=== PATIENT | male | born 1990 | race Caucasian/White ===

== ENCOUNTER 2017-06-12 19:23 | Inpatient (IN) | payer OTHER ==
[~2017-06-12] VITALS: Ht 175.3 cm; Wt 57.0 kg
--- NOTE | 2017-06-12 20:04 | NUR ---
LAB AT BEDSIDE
--- NOTE | 2017-06-12 20:15 | NUR ---
PT BIBA FOR CO GEN WEAKNESS X4 DAYS, PER MEDIC PT WAS SEEN AT [facility] AND DC 2 DAYS AGO AFTER ADMITTED FOR SEIZURE. PER MEDIC PT ALSO WAS HOSPITALIZED FOR CARDIAC ARREST IN NOV 2016. PT HAS DIALYSIS MWF; SHUNT TO UPPER RIGHT CHEST. PT AWAKE ALERT, STS PAIN AT 8/10. PT HAS HX OF COCAINE USE, PER PT HAS NOT USED IN 2 DAYS. COOLING MEASURES INITIATED, MEDS GIVEN FOR FEVER. PT CONNECTED TO FULL CM
--- NOTE | 2017-06-12 20:46 | NUR ---
GRANDMOTHER AND MOTHER AT BEDSIDE. MRSA SWAB OBTAINED
[2017-06-12 21:06] LABS: PLATELET COUNT 76 x10^3mcL (130-400); RED CELL DISTRIBUTION WIDTH 15.2 % (11.5-14.5)
[2017-06-12 21:10] LABS: BAND NEUTROPHIL 14 % (0-10); METAMYELOCTE 4 % (0-2); MONOCYTE 5 % (0-7); SEGMENTED NEUTROPHILS 72 % (37-75)
[2017-06-12 21:12] LABS: rbc morphology (normal/abnorm) ABNORMAL (NORMAL)
--- NOTE | 2017-06-12 21:18 | NUR ---
PT OUTPUT 200 ML CLEAR YELLOW URINE VIA URINAL.
[2017-06-12 21:37] LABS: ALBUMIN 3.3 g/dL (3.4-5.0); BILIRUBIN TOTAL 0.4 mg/dL (0.20-1.00); CALCIUM 7.2 mg/dL (8.5-10.1); CARBON DIOXIDE 26.4 mmol/L (21-32); POTASSIUM SERUM 4.7 mmol/L (3.5-5.1); TOTAL PROTEIN, SERUM 6.9 g/dL (6.4-8.2)
[2017-06-12 21:39] LABS: CREATININE SERUM 9.5 mg/dL (0.7-1.3)
[2017-06-12 21:48] LABS: CK-MB < 0.5 ng/mL (0-3.6)
[2017-06-12 22:03] LABS: CREATINE KINASE 21508 U/L (39-308)
[2017-06-12 22:10] LABS: UA SPECIFIC GRAVITY 1.015 (1.005-1.035)
[2017-06-12 22:11] LABS: microscopic required? YES; urine erythrocyte 3+ (NEGATIVE)
[2017-06-12] MEDS ORDERED: NEPHRO-VITE VITA1 EA PO (22:36)
[2017-06-12] MEDS ORDERED: CALCITRIOL0.25 MCG PO (22:37)
[2017-06-12] MEDS ORDERED: VITAMIN D32000 I2 PO (22:37)
[2017-06-12] MEDS ORDERED: NOR10 PO (22:38)
[2017-06-12] MEDS ORDERED: LEXAPRO20 MG PO (22:38)
[2017-06-12] MEDS ORDERED: ASPIRIN325 M1 PO (22:38)
[2017-06-12] MEDS ORDERED: PHOSLO667 MG PO (22:38)
[2017-06-12] MEDS ORDERED: TRILEPTAL150 MG PO (22:38)
[2017-06-12] MEDS ORDERED: METOPROLOL TART50 MG PO (22:39)
[2017-06-12] MEDS ORDERED: LISINOPRIL40 MG PO (22:39)
[2017-06-12] MEDS ORDERED: MINOXIDIL2.5 MG PO (22:39)
[2017-06-12] MEDS ORDERED: HYDRALAZINE HCL25 MG PO (22:39)
[2017-06-12] MEDS ORDERED: LIPI10 PO (22:40)
[2017-06-12] MEDS ORDERED: ABILIFY5 M1 PO (22:40)
--- NOTE | 2017-06-12 22:48 | NUR ---
REPORT GIVEN TO AZRA TO ASSUME CARE OF PT. PT STS NEEDING TO USE RESTROOM; BEDSIDE COMMODE GIVEN. PT AWAKE ALERT, RESP E/U AT THIS TIME
[2017-06-12 22:57] LABS: MAGNESIUM 1.7 mg/dL (1.8-2.4); PHOSPHOROUS 5.2 mg/dL (2.5-4.9)
[2017-06-12 23:04] LABS: T3 TOTAL 0.51 ng/mL
[2017-06-12 23:05] LABS: FREE T4 0.74 ng/dL (0.76-1.46); FREE THYROXINE INDEX 1.6 ug/dL (1.4-4.5); T4(THYROXINE) 4.7 ug/dL (4.7-13.3)
[2017-06-12 23:49] VITALS: BP 128/84
--- NOTE | 2017-06-13 00:02 | NUR ---
RECEIVED PATIENT FROM ED VIA GUERNEY, PATIENT ALERT AND ORIENTED MOTHER AT BEDSIDE, TELE # 9 ST, IV ACCESS TO LFA MAICOL WARREN CATH NOTED TO R UPPER CHEST, PATIENT ON HD , NO C/O PAIN AT THIS TIME, ORIENTED PATIENT TO ROOM AND SURROUNDINGS, BED IN LOW POSITION, BED RAILS UP X 2, CALL LIGHT WITHIN REACH, WILL ENDORSE CARE TO PRIMARY NURSE AZRA MADRIGAL
--- NOTE | 2017-06-13 00:25 | NUR ---
PT SIGNED CONSENT FOR DISCLOSURE OF HEALTH INFORMATION. PT'S MOTHER PRESENT AND SHE NOTICED THAT PT HAD DIFFICULTY WRITING AND SAID THAT NORMALLY HE CAN WRITE WITHOUT DIFFICULTY. ASSESSED PT'S HAND MANAGER ONCOLOGY AND NOTED STRONG BILATERALLY.
--- NOTE | 2017-06-13 01:09 | NUR ---
INFORMED DR. BURGESS THAT PT'S MOTHER IS CONCERNED THAT SHE NOTICED HER SON HAVING DIFFICULTY WRITING AND THAT PER MOTHER NORMALLY THE PT CAN WRITE WITHOUT DIFFICULTY. ALSO INFORMED DR. BURGESS REGARDING MG LEVEL OF 1.7 .
--- NOTE | 2017-06-13 02:55 | NUR ---
PT HAD MOD WATERY BM. PT CLEANED AND KEPT COMFORTABLE.
--- NOTE | 2017-06-13 05:09 | NUR ---
PT RESTING IN BED. HE HAD WATERY BM X2 SINCE ARRIVAL TO FLOOR. STOOL SPECIMEN FOR C-DIFF SENT TO LAB ORDERED. PT HAD NO C/O PAIN. HE REMAINS ORIENTED X4. TYLENOL GIVEN FOR TEMP OF 103.7 . WILL RECHECK TEMP. PT INSTRUCTED TO BE ON NPO STATUS UNTIL U/S ABDOMEN IS DONE. IV TO LTFA INTACT W/ NS AT 50 CC/HR. NO EPISODE OF SEIZURE.
[2017-06-13 06:09] VITALS: BP 132/82
--- NOTE | 2017-06-13 06:31 | NUR ---
TEMP [id number].
[2017-06-13 06:32] LABS: BASOPHIL % 0.1 % (0-2)
[2017-06-13 06:57] LABS: CALCIUM 7.3 mg/dL (8.5-10.1); CARBON DIOXIDE 25.7 mmol/L (21-32); MAGNESIUM 1.6 mg/dL (1.8-2.4); POTASSIUM SERUM 4.4 mmol/L (3.5-5.1)
--- NOTE | 2017-06-13 07:30 | NUR ---
PT SLEEPING. HARD OF HEARING. WITH LOUD VOICE PT AWAKENS. ALERT TO PERSON AND . HX SEIZURES. SEIZURE PRECAUTIONS IN PLACE. HUFO=079.2. TELE #9 SINUS RHYTHM RATE 88. RESP 18 EVEN. BREATH SOUNDS CLEAR. NO COUGH OR SOB. PULSE OX 95% RA. ABD SOFT, BOWEL TONES PRESENT. HAS PERIODS OF LOOSE INCONTINENT STOOLS STRONG ODOR. PAD IN PLACE. DENIES ABD DISCOMFORT OR NAUSEA. APPETITE FAIR. NO PEDAL EDEMA. PULSES PRESENT. SCD IN PLACE. IV PATENT LFA INFUSING NORMAL SALINE 50CC/HR. MAICOL CATH RIGHT UPPER CHEST. LAST DIALYSIS TX Sunday06-11-17. SIDE RAILS UP X2. CALL LIGHT IN REACH. NPO FOR ABD ULTRASOUND THIS AM. FALL PRECAUTIONS IN PLACE.
[2017-06-13 07:34] LABS: PLATELET COUNT 104 x10^3mcL (130-400); RED CELL DISTRIBUTION WIDTH 14.7 % (11.5-14.5)
[2017-06-13 08:18] VITALS: BP 113/71
--- NOTE | 2017-06-13 08:30 | NUR ---
DR BARRETT AND MEDICAL TEAM IN ON ROUNDS. CHARGE AND PRIMARY NURSE PRESENT. REVIEWED PLAN OF CARE. PT VERBALIZED UNDERSTANDING.
--- NOTE | 2017-06-13 09:40 | NUR ---
DR MORENO HERE. UPDATED WITH PT STATUS AND DIALYSIS TX SCHEDULE. REPORTS "DR HOBBS HAS BEEN NOTIFIED."
--- NOTE | 2017-06-13 11:00 | NUR ---
CALL FROM LAB. BLOOD CULTURE SHOWS GRAM POSITIVE COCCI IN CLUSTERS. PAGE TO DR MORENO AND MADE AWARE. ON ROCEPHIN IV DAILY. DR FU TO CONSULT.
--- NOTE | 2017-06-13 11:30 | NUR ---
DR ALBERTO AND DR SCHWARTZ IN TO SEE PT. UPDATED WITH LABS.
[2017-06-13 12:58] VITALS: BP 111/79
--- NOTE | 2017-06-13 14:05 | NUR ---
RECEIVED PT BACK VIA BED FROM XRAY AFTER COMPLETION OF LUMBAR PUNCTURE. PER REPORT ONLY 5CC OBTAINED. INSTRUCTED WITH NEED TO REMAIN FLAT IN BED. HOB ELEVATED 10 DEGREES. VERBALIZED UNDERSTANDING. TELE MONITOR APPLIED. LUNCH SERVED. PT STATES "ONLY URINATES A LITTLE BIT EVERY FEW DAYS." URINE SAMPLE FROM 8-29 IN LAB. ORDER SUBMITTED FOR UDS AND URINE CULTURE. IVF PER DR ORDER INCREASED TO BOLUS 200CC FOR ONE LITER. REVIEWED PLAN OF CARE WITH PT. CALL LIGHT IN REACH.
--- NOTE | 2017-06-13 15:52 | NUR ---
Initial Nutrition Assessment Dx: Rhabdomyolysis and fever PMHx: Alport syndrome with anterior lenticonus bilaterally, hearing impairment and ESRD on HD, Substance abuse - methamphetamines and cocaine, [place] in November 2016, Seizures, HTN HLD PSHx:previous peritoneal dialysis Labs: (06/13) Na:134L, BUN:58H, Cr:11H, Ca:7.3L, Bassam:6H, H/H:9.8/30L Meds: Colace, Lactinex, Magnesium oxide, Nephro-hernandez, Phoslo, Rocaltrol, Vit D, Zofran. Diet:Regular PO Intake:No PO intake recorded Ht: 69in, 5'9 Wt: 130#, 60.46kg BMI: 19.7kg/m2 (normal weight) IBW: 160#,73kg %IBW: 81% UBW:130# per pt Age:27 y/o male Food Allergies:NKFA Skin:intact Hector:20 Edema:none GI:active bowel sounds. Last BM:06/12 (loose stool) Nursing Trgigger: N/V/D>3days Pt admitted with possible sepsis secondary to UTI vs infected carlton catheter vs gastroenteritis, per H&P. Per progress note 06/13, pt's blood cultures came back positive for gram positive coccii in clusters (pt on Rocephin). Dr. Harmon was consulted and has been notified of the update of the pt's condition. During visit, pt reports no GI issues with a fair to good appetite. Pt seemed to not be interested during RD interview and answered questions with, "Yes or No". Problem with: N: No V: No D: No C:No Problems with: Chewing:No Swallowing: No Current appetite: Fair to Good per pt Recent wt change:No %wt change:0% Vitamin/Supplement use:No Special diet at home:No Physical activity:No Education: Pt declined nutrition education. Estimated Nutritional Needs Based on actual body weight 60kg Energy: 2100kcal/d (35kcal/kg for ESRD on HD) Protein: 72-78g/d (1.2-1.3g/kg for ESRD on HD) Fluid: 500-1000ml/day +urine output or per doctor Nutrition Diagnosis 1. Altered nutrition labs related to ESRD on HD as evidenced by BUN:58, Cr:11, Phos:6. Intervention 1.Recommend change diet from Regular to Renal diet. Monitor/Evaluate Goal: PO intake at least 75% of estimated needs Monitor: PO intake, Labs, GI function F/U in 3-5 days as moderate risk:9/2-4
--- NOTE | 2017-06-13 15:53 | NUR ---
Recommend change diet from Regular to Renal diet. Pt with ESRD on HD.
--- NOTE | 2017-06-13 16:00 | NUR ---
DR MARROQUIN HERE. UPDATED WITH PT STATUS. IV CONVERTED TO SALINE LOCK. IV LASIX DC. FOR DIALYSIS TODAY. CALL TO JEFRY MADRIGALMAINTENANCE GROUNDSKEEPER NURSE. WILL BE HERE THIS AFTERNOON. SPOKE WITH PHARMACY, THEY WILL SCHEDULE IV VANCO FOR AFTER DIALYSIS.
[2017-06-13 16:33] LABS: APPEARANCE CSF CLEAR; COLOR CSF COLORLESS; SOURCE FLUID CSF
[2017-06-13 16:34] LABS: RBC CSF 307 /cumm (0); VOLUME CSF 4.5 mL; WBC CSF 7 /cumm (0-5)
[2017-06-13 16:35] LABS: CALCIUM 7.8 mg/dL (8.5-10.1); CARBON DIOXIDE 26.8 mmol/L (21-32); POTASSIUM SERUM 4.7 mmol/L (3.5-5.1)
[2017-06-13 16:38] LABS: CREATININE SERUM 11.7 mg/dL (0.7-1.3)
--- NOTE | 2017-06-13 16:50 | NUR ---
DIALYSIS NURSE JEFRY HERE. CONSENT SIGNED FOR DIALYSIS. NO CHANGE IN PT STATUS. CALL LIGHT IN REACH.
[2017-06-13 17:35] VITALS: BP 113/71
--- NOTE | 2017-06-13 19:00 | NUR ---
PT CONTINUES ON DIALYSIS TX. REPORT WITH MADAY MADRIGAL GLASS OR MIRROR INSPECTOR AT BEDSIDE. NO CHANGE IN ORDERS. CALL LIGHT IN REACH.
--- NOTE | 2017-06-13 19:30 | NUR ---
PT CURRENTLY HAVING DIALYSIS. ALERT AND VERBAL WITH CLEAR SPEECH. ON ROOM AIR WITH NO S/S OF RESPIRATORY DISTRESS NOTED. ON TELE 9, NSR. DENIES ANY CHEST PAIN. MAICOL CATH SITE CDI. NO S/S OF INFECTION NOTED. ABD SOFT AND FLAT. BOWEL SOUNDS ACTIVE. IV SALINE LOCK TO LEFT FA PATENT AND INTACT. NO S/S OF INFECTION NOTED. NO EDEMA NOTED. PULSES PALPABLE. DENIES ANY PAIN AT THIS TIME. NO MOANING OR GRIMACING NOTED. NO S/S OF DISTRESS NOTED. CALL LIGHT WITHIN REACH. WILL CONTINUE TO MONITOR.
--- NOTE | 2017-06-13 20:10 | NUR ---
DIALYSIS COMPLETED. PT'S VSS. 1500 OUT. NO S/S OF DISTRESS OR DISCOMFORT NOTED AT THIS TIME. CALL LIGHT WITHIN REACH. WILL CONTINUE TO MONITOR.
[2017-06-13 21:12] VITALS: BP 116/81
--- NOTE | 2017-06-14 00:30 | NUR ---
PT RESTING IN BED WITH EYES CLOSED. BREATHING EQUAL AND UNLABORED. NO S/S OF RESPIRATORY DISTRESS NOTED. NO ADVERSE REACTIONS NOTED FROM IV VANCOMYCIN. IV PATENT AND INTACT. RESTING COMFORTABLY WITH RELAXED FACIAL FEATURES. CALL LIGHT WITHIN REACH. WILL CONTINUE TO MONITOR.
--- NOTE | 2017-06-14 02:25 | NUR ---
PT C/O HAVING TROUBLE SLEEPING. DR. FREY NOTIFIED AND AWARE. AWAITING NEW ORDER.
[2017-06-14 05:55] VITALS: BP 127/85
--- NOTE | 2017-06-14 06:17 | NUR ---
PT SLEPT WELL REST OF THE NIGHT. CURRENTLY RESTING IN BED WITH EYES CLOSED. BREATHING EQUAL AND UNLABORED. NO S/S OF RESPIRATORY DISTRESS NOTED. RESTING COMFORTABLY WITH RELAXED FACIAL FEATURES. NO S/S OF DISTRESS NOTED. CALL LIGHT WITHIN REACH. WILL CONTINUE TO MONITOR.
[2017-06-14 06:30] LABS: CALCIUM 8.1 mg/dL (8.5-10.1); CARBON DIOXIDE 30.4 mmol/L (21-32); MAGNESIUM 1.7 mg/dL (1.8-2.4); PHOSPHOROUS 4.8 mg/dL (2.5-4.9); POTASSIUM SERUM 3.9 mmol/L (3.5-5.1)
[2017-06-14 06:49] LABS: BASOPHIL % 0.4 % (0-2)
[2017-06-14 06:58] LABS: CREATININE SERUM 7.4 mg/dL (0.7-1.3)
[2017-06-14 07:04] LABS: PLATELET COUNT 105 x10^3mcL (130-400); RED CELL DISTRIBUTION WIDTH 15.2 % (11.5-14.5)
--- NOTE | 2017-06-14 07:23 | NUR ---
PT RECEIVED DURING CHANGE OF SHIFT, ASLEEP BUT AROUSABLE, [place], SZ PRECAUTIONS IN PLACE, TELE 9, NSR, PULSES PRESENT, NO EDEMA NOTED, LUNGS CTA ON RA, BREATHING EVEN AND UNLABORED, BOWEL SOUNDS ACTIVE, LBM 06/13/17, PT VOIDS SMALL AMOUNTS, RECEIVES HD TX MWF, LAST HD TX 06/13/17 1500ML OUT, MAICOL CATH TO RIGHT CHEST, GENERALIZED WEAKNESS, NO INDICATION OF PAIN, IV TO LFA SALINE LOCKED, CALL LIGHT WITHIN REACH, WILL CONTINUE TO MONITOR.
[2017-06-14 09:19] VITALS: BP 114/70
--- NOTE | 2017-06-14 09:20 | NUR ---
PT AROUSED FROM SLEEP, AGREED TO MEDICATIONS, DENIES PAIN, DENIES SOB, CALL LIGHT WITHIN REACH, WILL CONTINUE TO MONITOR.
--- NOTE | 2017-06-14 10:10 | NUR ---
PT SPEAKING WITH DR. MORENO.
--- NOTE | 2017-06-14 11:43 | NUR ---
PT AROUSED FROM SLEEP, DENIES SOB, DENIES PAIN, CALL LIGHT WITHIN REACH, WILL CONTINUE TO MONITOR.
--- NOTE | 2017-06-14 12:18 | NUR ---
PT ASLEEP, NO INDICATION OF PAIN, BREATHING EVEN AND UNLABORED, CALL LIGHT WITHIN REACH, WILL CONTINUE TO MONITOR.
--- NOTE | 2017-06-14 13:15 | NUR ---
PT DENIES SOB, DENIES PAIN, CALL LIGHT WITHIN REACH, WILL CONTINUE TO MONITOR.
--- NOTE | 2017-06-14 14:16 | NUR ---
PT DENIES SOB, DENIES PAIN, TELE PLACED BACK ON PT, CALL LIGHT WITHIN REACH, WILL CONTINUE TO MONITOR.
[2017-06-14 14:18] VITALS: BP 113/82
[2017-06-14 15:18] LABS: AMPHETAMINE QUAL UR NONE DETECTED (NEG <=1000)
--- NOTE | 2017-06-14 15:30 | NUR ---
PT DENIES SOB, DENIES PAIN, CALL LIGHT WITHIN REACH, WILL CONTINUE TO MONITOR.
--- NOTE | 2017-06-14 16:34 | NUR ---
PT DENIES SOB, DENIES PAIN, CALL LIGHT WITHIN REACH, WILL CONTINUE TO MONITOR.
--- NOTE | 2017-06-14 17:10 | NUR ---
PT DENIES SOB, DENIES PAIN, CALL LIGHT WITHIN REACH, DR. MORENO INFORMED PT OF NEED FOR CATHETER REMOVAL TOMORROW.
[2017-06-14 17:28] VITALS: BP 103/69
--- NOTE | 2017-06-14 18:13 | NUR ---
PT ASLEEP, NO INDICATION OF PAIN, BREATHING EVEN AND UNLABORED, CALL LIGHT WITHIN REACH, WILL ENDORSE PT TO NEXT SHIFT.
[2017-06-14 19:30] VITALS: BP 100/59
--- NOTE | 2017-06-14 19:30 | NUR ---
PT RESTING IN BED WITH EYES CLOSED. AROUSED BY VERBAL AND TACTILE STIMULI. VERBAL WITH CLEAR SPEECH. NO S/S OF RESPIRATORY DISTRESS NOTED. LUNGS CLEAR BILATERALLY. MAICOL CATH TO LEFT UPPER CHEST CDI. DENIES ANY CHEST PAIN. ON TELE 9, NSR. ABD SOFT AND FLAT. BOWEL SOUNDS ACTIVE. LAST BM 06/14/17. SKIN WARM AND DRY. IV SALINE LOCK TO LEFT FA INTACT. NO S/S OF INFECTION NOTED. NO EDEMA NOTED. PULSES PALPABLE. DENIES ANY PAIN AT THIS TIME. NO S/S OF DISTRESS OR DISCOMFORT NOTED. SIDE RAILS UP. BED IN LOW POSITION. CALL LIGHT WITHIN REACH. WILL CONTINUE TO MONITOR.
[2017-06-14 21:34] VITALS: BP 120/81
--- NOTE | 2017-06-15 00:45 | NUR ---
PT RESTING IN BED WITH EYES CLOSED. BREATHING EQUAL AND UNLABORED. NO S/S OF RESPIRATORY DISTRESS NOTED. RESTING COMFORTABLY WITH RELAXED FACIAL FEATURES. CALL LIGHT WITHIN REACH. WILL CONTINUE TO MONITOR.
[2017-06-15 05:44] VITALS: BP 115/77
--- NOTE | 2017-06-15 05:57 | NUR ---
PT SLEPT WELL THROUGH THE NIGHT. EASILY AROUSED WHEN NAME CALLED. NO S/S OF RESPIRATORY DISTRESS NOTED. PT HAD BM X1, DIARRHEA. DENIES ANY PAIN OR DISCOMFORT AT THIS TIME. NO S/S OF DISTRESS NOTED. CALL LIGHT WITHIN REACH. WILL CONTINUE TO MONITOR.
[2017-06-15 06:39] LABS: BASOPHIL % 0.4 % (0-2); PLATELET COUNT 143 x10^3mcL (130-400)
[2017-06-15 06:53] LABS: RED CELL DISTRIBUTION WIDTH 15.3 % (11.5-14.5)
--- NOTE | 2017-06-15 08:11 | NUR ---
SLEEPING BUT EASILY AROUSABLE, ORIENTED, [place], SEIZURE PRECAUTIONS IN PLACE. TELE #9. PULSES PRESENT AND EQUAL, NO EDEMA NOTED. LUNG SOUNDS CLEAR ON RA. LAST BM 06/15/17, REPORTS LOOSE STOOLS. PACO CATH TO RIGHT CHEST, DIALYSIS IN ROOM. SKIN WARM DRY AND INTACT. DENIES ANY PAIN AT THIS TIME, NO SOB OR DISTRESS NOTED. IV LFA, WNL, SL.
[2017-06-15 08:29] LABS: CALCIUM 8.3 mg/dL (8.5-10.1); CARBON DIOXIDE 27.6 mmol/L (21-32); PHOSPHOROUS 6.9 mg/dL (2.5-4.9); POTASSIUM SERUM 3.9 mmol/L (3.5-5.1)
--- NOTE | 2017-06-15 08:52 | NUR ---
DR BARRETT AND MEDICAL TEAM IN ROUNDS MADE ON PATIENT, CHARGE AND PRIMARY NURSE PRESENT. PLAN FOR THE DAY IS DIALYSIS AND REMOVAL OF PACO CATH.
[2017-06-15 09:45] VITALS: BP 92/62
[2017-06-15 09:55] VITALS: BP 125/73
--- NOTE | 2017-06-15 11:45 | NUR ---
STOCK TRANSFER CLERK CALL, PATIENT IN BIGEMENY PVC'S. NO DISTRESS NOTED ON PATIENT
--- NOTE | 2017-06-15 12:05 | NUR ---
DIALYSIS COMPLETED, RECEIVED REPORT FROM DIALYSIS NURSE, LOST 1.9 KG, BP 106/76, HR 78 AND DRESSING CHANGED, TOLERATED WELL
--- NOTE | 2017-06-15 12:13 | NUR ---
WITNESS CONSENT FOR REMOVAL OF PERMACATH.DOCTOR CURIEL REMOVED CATHETER, TOLERATED WELL. NO DISTRESS NOTED
--- NOTE | 2017-06-15 12:20 | NUR ---
DR CURIEL HAS LEFT, DID NOT CULTURE TIP OF PERMACATH. DR ROBLERO AND LAB NOTIFIED. DRESSING CDI RIGHT UPPER CHEST.
--- NOTE | 2017-06-15 12:45 | NUR ---
PT ANXIOUS TO GO HOME. STATES "ALL I NEED IS A CIGARETTE. I WANT TO LEAVE." DR ROBLERO IN TO SPEAK WITH PT. INFORMED OF RISKS AND POSSIBLE SEPSIS, AND IF INFECTION WERE TO SPREAD. PT VERBALIZED UNDERSTANDING AND STILL WANTS TO LEAVE. IV REMOVED CATH TIP INTACT. TELE REMOVED.
--- NOTE | 2017-06-15 12:50 | NUR ---
DR SEPULVEDA IN TO SPEAK WITH PT. PT AGREEABLE NOW TO STAY. NOT LEAVING AMA. TELE APPLIED. IV TO BE RESTARTED.
[2017-06-15 13:11] VITALS: BP 119/84
--- NOTE | 2017-06-15 14:56 | NUR ---
IV STARTED IN LEFT HAND TOLERATED WELL. IV IN LFA D/C EARLIER CATHETER INTACT
--- NOTE | 2017-06-15 17:06 | NUR ---
NICODERM PATCH PLACED TO RIGHT UPPER ARM. VISITOR IN ROOM. NO DISTRESS OR SOB NOTED
[2017-06-15 17:45] VITALS: BP 125/88
--- NOTE | 2017-06-15 17:45 | NUR ---
CALLED [facility] TO ORDER DOSE OF VANCOMYCIN FOR PATIENT, WILL SEND DOSE.
--- NOTE | 2017-06-15 19:24 | NUR ---
PATIENT RESTING, NO DISTRESS NOTED, VANCO INFUSING, DENIES ANY PAIN AT THIS TIME. EDORSED TO NIGHT NURSE
--- NOTE | 2017-06-15 19:45 | NUR ---
RECD PT LAYING IN BED, PT IS AAO X4 AND ON SEIZURE PRECAUTIONS. PT IS [place] IN BOTH EARS. PT ON TELE #9, NSR. PEDAL PULSES PRESENT, NO SIGNS OF EDEMA NOTED. PT ON ROOM AIR, LUNG SOUNDS CLEAR ON AUSCULTATION. PT HAS GENERALIZED WEAKNESS. NO C/O PAIN AT THIS TIME. IV IN LH SALINE LOCKED. PT CALM. BED IN LOW POSITION, CALL LIGHT WITHIN REACH. WILL CONTINUE TO MONITOR.
[2017-06-15 21:11] VITALS: BP 142/95
--- NOTE | 2017-06-16 02:08 | NUR ---
PT SLEEPING ON LEFT SIDE COMFORTABLY. NO SIGNS OF DISTRESS NOTED. WILL CONTINUE TO MONITOR.
--- NOTE | 2017-06-16 03:26 | NUR ---
PT RESTING COMFORTABLY IN SUPINE POSITION. WILL CONTINUE TO MONITOR.
[2017-06-16 04:55] LABS: BASOPHIL % 0.3 % (0-2); PLATELET COUNT 169 x10^3mcL (130-400)
[2017-06-16 05:10] LABS: CALCIUM 8.2 mg/dL (8.5-10.1); CARBON DIOXIDE 27.1 mmol/L (21-32); MAGNESIUM 1.8 mg/dL (1.8-2.4); PHOSPHOROUS 6.4 mg/dL (2.5-4.9); POTASSIUM SERUM 4.2 mmol/L (3.5-5.1)
[2017-06-16 05:12] LABS: CREATININE SERUM 7.3 mg/dL (0.7-1.3)
[2017-06-16 05:16] LABS: RED CELL DISTRIBUTION WIDTH 15.2 % (11.5-14.5)
[2017-06-16 05:41] VITALS: BP 122/79
--- NOTE | 2017-06-16 06:33 | NUR ---
PT SLEEPING COMFORTABLY AT THE MOMENT. PT HAD NO C/O PAIN IN THE EVENING. PT REQUESTED SLEEP MED IN THE EVENING X1 AND WAS GIVEN AMBIEN 5 MG PO. BED IN LOW POSITION, CALL LIGHT WITHIN REACH.
--- NOTE | 2017-06-16 08:00 | NUR ---
AWAKE AND ALERT. TELE #9 SINUS RHYTHM WITH ELEVATED T WAVE. RESP 18 EVEN. BREATH SOUNDS CLEAR. LAST BM LOOSE 06-15-17. ESRD REPORTS "ONLY PEES A LITTLE BIT EVERY FEW DAYS." LAST DIALYSIS TX 06-15-17. DRESSING CDI TO RIGHT UPPER CHEST FROM PERMACATH REMOVED 06-15-17. NO EDEMA. PULSES PRESENT. SCD IN PLACE. SALINE LOCK LEFT HAND. SIDE RAILS UP X2. CALL LIGHT IN REACH.
--- NOTE | 2017-06-16 08:05 | NUR ---
DR ANGELA AND MEDICAL TEAM IN ON ROUNDS. REVIEWED PLAN OF CARE. TO HAVE NEW PERMACATH PLACED ON SUNDAY FOR DIALYSIS. TO CONTINUE IV ANTIBIOTICS ORDERED. PT VERBALIZED UNDERSTANDING.
[2017-06-16 10:02] VITALS: BP 108/76
--- NOTE | 2017-06-16 12:40 | NUR ---
APPETITE GOOD. DENIES PAIN. NO STOOL SO FAR TODAY. VOIDED SMALL AMOUNT IN BATHROOM. CALL LIGHT IN REACH.
[2017-06-16 12:49] VITALS: Ht 175.3 cm; Wt 57.0 kg
[2017-06-16 13:50] VITALS: BP 110/76
[2017-06-16 17:16] VITALS: BP 120/84
--- NOTE | 2017-06-16 17:40 | NUR ---
SLEPT OFF AND ON TODAY. PLEASANT. NICODERM PATCH IN PLACE. STATES "IT DOESN'T TAKE THE CRAVINGS AWAY BUT I AM OK." CALL LIGHT IN REACH.
--- NOTE | 2017-06-16 18:30 | NUR ---
TELE REMOVED AND RETURNED TO TELE UNIT.
--- NOTE | 2017-06-16 19:30 | NUR ---
PT ALERT/ORIENTED X4. NO C/O PAIN. PT ASSESSED; SEE NSG FLOWSHEET. SAFETY REINFORCED; SEE EDUCAT SHEET. WILL CONTINUE TO MONITOR. IV IN LF HAND INFILTRATED WILL START A NEW IV.
--- NOTE | 2017-06-16 20:15 | NUR ---
IV REMOVED; CANULA INTACT. NEW IV INITIATED IN THE LF FOREARM.
--- NOTE | 2017-06-16 20:55 | NUR ---
DR LANDIN IN ROOM SPEAKING TO PT.
[2017-06-16 21:32] VITALS: BP 131/83
--- NOTE | 2017-06-16 23:30 | NUR ---
PT AWAKE. NO C/O PAIN. WILL CONTINUE TO MONITOR.
--- NOTE | 2017-06-17 01:03 | NUR ---
PT REQUESTING SLEEP AID. MEDICATED WITH AMBIEN PER MD PRN ORDER. WILL CONTINUE TO MONITOR.
--- NOTE | 2017-06-17 02:03 | NUR ---
PT WITH EYES CLOSED. NO DISTRESS NOTED. PT WAS MEDICATED WITH AMBIEN AT 0103(SEE EMAR). WILL CONTINUE TO MONITOR.
--- NOTE | 2017-06-17 05:03 | NUR ---
PT SLEPT IN SHORT INTERVALS THROUGHOUT THE NIGHT. NO C/O PAIN. WILL CONTINUE TO MONITOR.
[2017-06-17 06:35] VITALS: BP 123/81
--- NOTE | 2017-06-17 07:10 | NUR ---
PT SEEN REST ON BED WITH SITTER AT BED SIDE. THIS TIME PT WOKE UP AND STATED SHE IS WORRIED ABOUT HER CAR, AND WONDER WHEN SHE CAN BE DISCHARGED. PT BREATHING ON RA, EVEN, UNLABORED. IV SITE PATENT, INTACT. IVF INFUSING WELL.
--- NOTE | 2017-06-17 07:15 | NUR ---
PT SEEN REST ON BED, AA/O X 4. PT NO COMPLAIN OF PAIN AT THIS TIME. PT BREATHING ON RA, EVEN, UNLABORED. IV SITE SALINE LOCK AT THIS TIME.
[2017-06-17 07:23] LABS: CALCIUM 8.3 mg/dL (8.5-10.1); CARBON DIOXIDE 25.3 mmol/L (21-32); PHOSPHOROUS 6.9 mg/dL (2.5-4.9); POTASSIUM SERUM 4.6 mmol/L (3.5-5.1)
[2017-06-17 07:40] LABS: CREATININE SERUM 9.2 mg/dL (0.7-1.3)
[2017-06-17 07:55] VITALS: BP 128/93
--- NOTE | 2017-06-17 14:03 | NUR ---
PT IS AWARE ABOUT INSERTION OF NONTUNNEL CATHERTER TOMORROW. CONSENT SIGNED. PT STATED NO MORE LOOSE STOOL SINCE YESTERDAY.
[2017-06-17 17:51] VITALS: BP 152/94
--- NOTE | 2017-06-17 18:37 | NUR ---
PT IS EATING DINNER. NO COMPLAIN OF PAIN AT THIS TIME. PT BREATHING ON RA, EVEN, UNLABORED. IV SITE SALINE LOCK. PT IS AWARE THAT POSSIBLE PROCEDURE- INSERTION OF NON-TUNNEL CATHETER. CONSENT SIGNED.
--- NOTE | 2017-06-17 19:15 | NUR ---
REPORT TAKEN FROM HORACE, ALL CARE ENDORSSED.
--- NOTE | 2017-06-17 19:30 | NUR ---
RECEIVED PT IN BED A/O X4. FOLLOWS COAND. RESP IS EVEN AND UNLABOTED. RA. SZ PRECAUTIONS. PT DENIES PAIN AT TIME. BOWEL SOUND ACTIVE X4Q. PT IS POSSIBLE TO HAVE TOMORROW PROCEDURE FOR INCERTING NON -TUNNELED CATH. PT IS HD AND VOIDS A SMALL AMOUNT. CONSENT IS SIGNED IN CHART AND CHECK LIST DONE WELL. SAFETY IN PLACE. CALL LIGHT WITHIN REACH. WILL CONTINUE TO MONITOR.
[2017-06-17 21:40] VITALS: BP 116/77
--- NOTE | 2017-06-18 | NUR ---
RECHECK WITH PT. PT IS SLEEPING AT TIME.
--- NOTE | 2017-06-18 00:15 | NUR ---
PT IS NPO AFTER MIDNIGHT
--- NOTE | 2017-06-18 04:00 | NUR ---
SPONGE BATH GIVEN. GOWN CHANGES. CARLOS 2% CHLORHEXIDINE GLUCONATE APPLIED FOR SKIN PREPERATION. NPO, CHECK LIST AND CONSENT IN CHART. WILL ENDORSE THE CARE TO DAY NURSE.
[2017-06-18 05:53] VITALS: BP 124/79
--- NOTE | 2017-06-18 07:21 | NUR ---
ASLEEP, RESP EVEN AND UNLABORED.
--- NOTE | 2017-06-18 08:25 | NUR ---
CONTINUES TO SLEEP, RESP EVEN AND UNLABORED, HAS CHANGED POSITIONS.
--- NOTE | 2017-06-18 08:48 | NUR ---
DR BARRETT IN TO SEE PATIENT. PLAN FOR MAICOL PLACEMENT TODAY. ALERT AND ORIENTED, HUGHES. RIGHT ARM RESTRICTION WILL BE HAVING AV SHUNT PLACED. ROOM AIR, NO SOB NOTED. MOVES ALL EXTREMITIES. SEIZURE PRECAUTIONS. HEPLOCKED TO LFA WNL. REPORTS LBM 06/17. CALL LIGHT WITHIN REACH. NPO.
--- NOTE | 2017-06-18 08:48 | NUR ---
USED NICOTENE PATCH ON BEDSIDE TABLE WAS PROPERLY DISPOSED. REFUSED NICOTENE PATCH AT THIS TIME.
[2017-06-18 08:54] VITALS: BP 128/85
--- NOTE | 2017-06-18 09:40 | NUR ---
ASLEEP, RESP EVEN AND UNLABORED.
--- NOTE | 2017-06-18 10:46 | NUR ---
ATIVAN GIVEN, HEPARIN GIVEN TO DR MEYERS.
--- NOTE | 2017-06-18 11:46 | NUR ---
WITNESSED CONSENT FOR MAICOL LINE PLACEMENT. TIME OUT COMPLETED WITH DR WELLS, DR MEYERS, [employer]. TECH AND THIS RN.
--- NOTE | 2017-06-18 12:21 | NUR ---
MAICOL CATH PLACED, CALLED RADIOLOGY FOR CXR.
--- NOTE | 2017-06-18 12:40 | NUR ---
RADIOLOGY IN TO DO CXR. IV DC'D CATHETER INTACT. REQUESTING TO EAT AND WANTS TO GO HOME AFTER HD TONIGHT. WILL SPEAK WITH
--- NOTE | 2017-06-18 12:46 | NUR ---
PAGED AND SPOKE WITH DR GALLARDO, MADE AWARE THAT WAITING RESULTS OF CXR AND PATIENT WANTS TO EAT AND BE RELEASED TONIGHT AFTER HD.
--- NOTE | 2017-06-18 13:25 | NUR ---
REQUESTING IV PAIN MEDICATION FOR NEW MAICOL SITE. DOES NOT WANT NORCO. PAGED AND SPOKE WITH DR GALLARDO.
--- NOTE | 2017-06-18 13:35 | NUR ---
IV STARTED IN LFA 20 GAUGE X 1 ATTEMPT BY OTHER RN.
--- NOTE | 2017-06-18 13:59 | NUR ---
HD NURSE CALLED IN AND WAS TOLD OKAY TO USE MAICOL.
--- NOTE | 2017-06-18 14:07 | NUR ---
Follow-up Nutrition Assessment Dx:Rhabdomyolysis, fever Labs: (06/17) B, BUN:75H, Cr:9.2H, Ca:9.3L, Phos:6.9H, H/H:10.2/31L Meds: Colace, Lactinex, Nephro-hernandez, Oscal, Phoslo, Rocaltrol, Vit D, Zofran. Diet: NPO for possible procedure. Previously on Renal diet. PO intake: (06/14) B:80%, L:NPO, D:100%, (06/15) B:NPO, L:NPO, D:100% (06/16) B:75% (06/17) B:100% Weights: (06/12) 133#, 60.46kg (06/16) 126#, 57kg Skin: intact Edema: None Last BM: 06/17 Pt admitted with Possible sepsis secondary to UTI vs infected carlton catheter vs gastroenteritis Per progress note 06/17, no acute events overnight. Pt to receive HD tomorrow as scheduled at 1800. Pt will have insertion of tunnel catheter today with Dr. Clark. During visit, pt had just come back from surgery for tunnel cath placement. Pt reports good appetite with no N/V/D/C. Pt wants to discharge after dialysis today. Estimated Nutritional Needs based on IBW:73kg Energy: 2190-2555kcal/day (30-35kcal/kg for ESRD on HD) Protein: 88-95g/day (1.2-1.3g/kg for ESRD on HD) Fluid: 500-1000ml/day +urine output or per doctor Nutrition Diagnosis 1. Altered nutrition labs related to ESRD on HD as evidenced by BUN:58, Cr: 11, Phos: 6 (ongoing) Intervention 1. Recommend advance diet as tolerated to Renal s/p surgery. Monitor/Evaluate Goal: diet advancement, PO intake at least 75% of estimated needs Monitor:NPO status, diet advancement, PO intake, Labs, GI function F/U in 7 day days as low risk: 06/25
--- NOTE | 2017-06-18 14:08 | NUR ---
UPSET ABOUT NOT GETTING IV PAIN MEDICATION, AGREED TO JAYLENE FOR 05/24, REQUESTED TO HAVE IV DC'D SINCE NOT GETTING IV PAIN MEDICATION. EXPLAINED RN WILL TALK WITH DR CONCERNING IV PAIN MEDICATION.
--- NOTE | 2017-06-18 14:09 | NUR ---
1. Recommend advance diet as tolerated to Renal s/p surgery.
--- NOTE | 2017-06-18 14:12 | NUR ---
HD NURSE BEDSIDE. PROVIDED WITH 2 BAGS NS, LABS AND HD ORDER.
--- NOTE | 2017-06-18 14:51 | NUR ---
HD NURSE REPORTING THAT PATIENT VERY UNCOOPERATIVE, KEEPS TRYING TO GET UP AND YELLING AT HER. THIS RN IN ROOM, PATIENT WANTING IV PAIN MEDICATION FOR 7/10 AT INSERTION SITE OF NEW MAICOL CATH. AUNT AND DAUGHTER OF PATIENT BEDSIDE.
--- NOTE | 2017-06-18 15:02 | NUR ---
PAGED DR ROBLERO X 2 TO MAKE AWARE OF PATIENTS BEHAVIOR AND DEMANDS.
--- NOTE | 2017-06-18 15:07 | NUR ---
SPOKE WITH DR ROBLERO, MADE AWARE OF PATIENTS BEHAVIOR AND REQUESTING IV PAIN MEDICATION.
--- NOTE | 2017-06-18 15:25 | NUR ---
MEDICATED WITH DILAUDID 1MG IV FOR 7/10 PAIN.
--- NOTE | 2017-06-18 16:12 | NUR ---
ASLEEP, RESP EVEN AND UNLABORED, HD CONTINUES.
--- NOTE | 2017-06-18 17:08 | NUR ---
ASLEEP, RESP EVEN AND UNLABORED. HD CONTINUES
[2017-06-18 17:21] VITALS: BP 127/88
--- NOTE | 2017-06-18 17:40 | NUR ---
HD COMPLETED. 2.6L OUT. WANTS TO SIGN OUT AMA. AGREES TO EAT DINNER WHILE DR MCKEON. PAGEYee ROBLERO.
--- NOTE | 2017-06-18 18:02 | NUR ---
THIS NURSE AND DR ROBLERO IN TO SPEAK WITH PATIENT AND MOTHER. DR ROBLERO SPOKE TO PATIENT ABOUT RISKS OF LEAVING AMA, INCLUDING INFECTION AND . PATIENT CURSING AND UPSET THAT MOTHER TRYING TO CONVINCE HIM TO STAY. CURSING AND UPSET TO FIND OUT MAICOL CATH WOULD NEED TO BE REMOVED PRIOR TO HIM LEAVING AMA. MOTHER STEPPED INTO HALLWAY WITH AND RN, ASKING FOR A HALF HOUR TO TRY TO CONVINCE PATIENT TO STAY, UNDERSTANDS NOT ABLE TO HOLD PATIENT AGAINST HIS WILL.
--- NOTE | 2017-06-18 18:20 | NUR ---
MOM REPORTS THAT PATIENT HAS AGREED TO STAY. SHE REPORTS THAT PATIENT IS FRUSTRATED BECAUSE NO ONE HAS EXPLAINED TO HIM WHY HE IS STILL HERE AND WHAT HE IS WAITING FOR, NO ONE HAS EXPLAINED TEST RESULTS TO HIM. HE WILL STAY IF THAT IS DONE AND HIS PAIN IS CONTROLLED. MOM REPORTS THAT [place], PATIENT HAS NEEDED THINGS EXPLAINED TO HIM IN A MORE "BASIC" MANNER. THIS RN SPOKE WITH DR ROBLERO AND MADE HER AWARE OF PATIENTS REQUESTS.
--- NOTE | 2017-06-18 19:50 | NUR ---
REC'D PT FROM DAY NURSE. AAOX3. LAYING IN BED. NO ACUTE DISTRESS NOTED. PULSES ARE PRESENT. NO TELE, MED-SURG PT. LUNG SOUNDS ARE CTA. BREATHING EVEN AND UNLABORED. SEZIURE PRECAUTION NOTED. L MAICOL CATH NOTED. NO EDEMA NOTED. MOTHER AT BEDSIDE. BED IN LOWEST POSITION. CALL LIGHT WITHIN REACH. WILL PROCEED TO PLAN OF CARE.
--- NOTE | 2017-06-18 20:05 | NUR ---
PT IS COMPLAINING OF PAIN 06/24. WILL MEDICATE PER EMAR.
[2017-06-18 21:23] VITALS: BP 117/81
--- NOTE | 2017-06-19 01:02 | NUR ---
PT IS CURRENTLY ASLEEP AND RESTING WELL. NO ACUTE DISTRESS NOTED. BREATHING EVEN AND UNLABORED. IV INTACT AND PATENT, HEP LOCK. WILL CONT TO MONITOR.
--- NOTE | 2017-06-19 03:59 | NUR ---
PT RESTING WITH EYES CLOSED. NO S/S OF RESP DISTRESS NOTED. BREATHING EVEN AND UNLABORED. WILL CONT TO MONITOR.
[2017-06-19 05:14] VITALS: BP 126/87
--- NOTE | 2017-06-19 05:49 | NUR ---
PT SLEPT THROUGHOUT THE SHIFT. NO ACUTE DISTRESS OR SIGNIFICANT CHANGES NOTED. CARLOS WIPED AROUND CENTRAL LINE. BREATHING EVEN AND UNLABORED. IV INTACT AND PATENT TO LFA, HEP LOCK. WILL ENDORSE ALL CONTINUITY CARE TO ONCOMING NURSE.
[2017-06-19 06:23] LABS: BASOPHIL % 0.4 % (0-2); PLATELET COUNT 260 x10^3mcL (130-400)
[2017-06-19 06:28] LABS: RED CELL DISTRIBUTION WIDTH 15.1 % (11.5-14.5)
--- NOTE | 2017-06-19 07:10 | NUR ---
PT SEEN AWAKE, A/O X3. PT NO COMPLAIN OF PAIN AT THIS TIME. PT HAD NEW MAICOL CATH INSERTED ON LEFT ON 06/18. PT BREATHING ON RA, EVEN, UNLABORED IV SITE PATENT, INTACT. SALINE LOCK AT THIS TIME.
[2017-06-19 07:16] LABS: CALCIUM 8.2 mg/dL (8.5-10.1); CARBON DIOXIDE 29.4 mmol/L (21-32); MAGNESIUM 1.9 mg/dL (1.8-2.4); PHOSPHOROUS 6.5 mg/dL (2.5-4.9); POTASSIUM SERUM 4.1 mmol/L (3.5-5.1)
[2017-06-19 07:22] LABS: CREATININE SERUM 8.3 mg/dL (0.7-1.3)
[2017-06-19 07:50] VITALS: BP 131/83
[2017-06-19 12:36] VITALS: BP 131/83
--- NOTE | 2017-06-19 14:11 | NUR ---
PT IS DISCHARGED WITH MAICOL CATH PER ORDER. DR. ROBLERO TALKED TO PT ABOUT HIS TOMORROW HD AND IV ANTIBIOTICS. PT STATED HE IS AWARE ABOUT TOMORROW HD SCHEDULE IN [facility]. PT ALSO STATED HIS MOM GOT CALL FROM DOCTOR AND AWARE ABOUT FOLLOW UP APPOINTMENT. DISCHARGE INSTRUCTION GIVEN. IV IS REMOVED. PT BREATHING ON RA, NO DISTRESSED NOTED. PT STATED HE IS GOING TO CALL [facility] WHEN HE GOT DOWNSTAIR. WALK PT DOWN TO DISCHARGE OFFICE. DISCHARGE NURSE RECEIVED PT.
== END 2017-06-19 14:10 | disposition home or self-care (01) | DRG 314 ==
LOC: ED 19:23 → DU 22:20 → MU 22:20 → DU 23:06 → MU 06-16 18:36
PROVIDERS: Emergency Medicine; Internal Medicine Nephrology; ADMIT Family Medicine
PROC: 02PYX3Z Removal of Infusion Device from Great Vessel, External Approach (ICD-10-PCS; principal; 2017-06-15)
PROC: 05HN33Z Insertion of Infusion Device into Left Internal Jugular Vein, Percutaneous Approach (ICD-10-PCS; 2017-06-18)
DX: T82.7XXA Infection and inflammatory reaction due to other cardiac and vascular devices, implants and grafts, initial encounter (principal); A41.9 Sepsis, unspecified organism; N18.6 End stage renal disease; N17.0 Acute kidney failure with tubular necrosis; R65.20 Severe sepsis without septic shock; M62.82 Rhabdomyolysis; I12.0 Hypertensive chronic kidney disease with stage 5 chronic kidney disease or end stage renal disease; Q87.81 Alport syndrome; E44.1 Mild protein-calorie malnutrition; E87.1 Hypo-osmolality and hyponatremia; E87.3 Alkalosis; N39.0 Urinary tract infection, site not specified; Z68.1 Body mass index [BMI] 19.9 or less, adult; F33.1 Major depressive disorder, recurrent, moderate; E83.42 Hypomagnesemia; E87.8 Other disorders of electrolyte and fluid balance, not elsewhere classified; G40.909 Epilepsy, unspecified, not intractable, without status epilepticus; E05.90 Thyrotoxicosis, unspecified without thyrotoxic crisis or storm; E83.39 Other disorders of phosphorus metabolism; D63.8 Anemia in other chronic diseases classified elsewhere; R74.0 Nonspecific elevation of levels of transaminase and lactic acid dehydrogenase [LDH]; E83.51 Hypocalcemia; E86.0 Dehydration; F14.10 Cocaine abuse, uncomplicated; F15.10 Other stimulant abuse, uncomplicated; I25.2 Old myocardial infarction; Z99.2 Dependence on renal dialysis; Z86.74 Personal history of sudden cardiac arrest; F17.210 Nicotine dependence, cigarettes, uncomplicated
CPT/HCPCS: 36600; 62272; 83880; 84439; A4719; J0696; J1170; J1642; J2001; J2060; J3370; J3490; J7030; J7040; J7050; Q0092; Q0163

== ENCOUNTER 2017-07-28 17:12 | Inpatient (IN) | payer OTHER ==
[~2017-07-28] VITALS: Ht 167.6 cm; Wt 65.0 kg
[~2017-07-28 17:12] MED LIST: ABILIFY5 M1 PO; ASPIRIN325 M1 PO; CALCITRIOL0.25 MCG PO; HYDRALAZINE HCL25 MG PO; LEXAPRO20 MG PO; LIPI10 PO; LISINOPRIL40 MG PO; METOPROLOL TART50 MG PO; MINOXIDIL2.5 MG PO; NEPHRO-VITE VITA1 EA PO; NOR10 PO; PHOSLO667 MG PO; TRILEPTAL150 MG PO; VITAMIN D32000 I2 PO
[2017-07-28 18:24] LABS: BASOPHIL % 0.2 % (0-2); PLATELET COUNT 214 x10^3mcL (130-400)
[2017-07-28 18:26] LABS: RED CELL DISTRIBUTION WIDTH 15.1 % (11.5-14.5)
[2017-07-28 18:39] LABS: ALBUMIN 3.6 g/dL (3.4-5.0); BILIRUBIN TOTAL 0.2 mg/dL (0.20-1.00); CALCIUM 6.5 mg/dL (8.5-10.1); CARBON DIOXIDE 17.3 mmol/L (21-32); TOTAL PROTEIN, SERUM 7.2 g/dL (6.4-8.2); URIC ACID 7.9 mg/dL (3.5-7.2)
[2017-07-28 18:46] LABS: CREATININE SERUM 15.3 mg/dL (0.7-1.3); POTASSIUM SERUM 5.7 mmol/L (3.5-5.1)
[2017-07-28 20:27] VITALS: BP 139/95
[2017-07-28 21:02] LABS: CHOLESTEROL/HDL RATIO 4.7; MAGNESIUM 2.5 mg/dL (1.8-2.4)
[2017-07-28 21:10] LABS: FREE T4 0.85 ng/dL (0.76-1.46); FREE THYROXINE INDEX 2.2 ug/dL (1.4-4.5); T4(THYROXINE) 6.3 ug/dL (4.7-13.3)
[2017-07-28 21:17] LABS: T3 TOTAL 0.68 ng/mL
[2017-07-29 06:16] LABS: BASOPHIL % 0.4 % (0-2); PLATELET COUNT 205 x10^3mcL (130-400)
[2017-07-29 06:39] LABS: CALCIUM 6.5 mg/dL (8.5-10.1); CARBON DIOXIDE 16.5 mmol/L (21-32); MAGNESIUM 2.7 mg/dL (1.8-2.4); POTASSIUM SERUM 4.7 mmol/L (3.5-5.1)
[2017-07-29 06:45] VITALS: BP 156/106
[2017-07-29 06:52] LABS: CREATININE SERUM 15.1 mg/dL (0.7-1.3); PHOSPHOROUS 14.6 mg/dL (2.5-4.9)
[2017-07-29 07:00] LABS: RED CELL DISTRIBUTION WIDTH 15.3 % (11.5-14.5)
[2017-07-29 09:57] VITALS: BP 137/94
[2017-07-29 14:25] VITALS: BP 135/86
[2017-07-29 17:50] VITALS: BP 134/97
[2017-07-29 21:53] VITALS: BP 130/87
[2017-07-30 06:14] LABS: BASOPHIL % 0.4 % (0-2); PLATELET COUNT 207 x10^3mcL (130-400)
[2017-07-30 06:39] LABS: RED CELL DISTRIBUTION WIDTH 14.9 % (11.5-14.5)
[2017-07-30 06:54] LABS: CALCIUM 7.3 mg/dL (8.5-10.1); CARBON DIOXIDE 22.6 mmol/L (21-32); MAGNESIUM 2.1 mg/dL (1.8-2.4); POTASSIUM SERUM 3.9 mmol/L (3.5-5.1)
[2017-07-30 07:13] VITALS: BP 126/84
[2017-07-30 08:02] LABS: CREATININE SERUM 11.8 mg/dL (0.7-1.3)
[2017-07-30 09:28] VITALS: BP 131/81
[2017-07-30 12:09] VITALS: BP 131/81
== END 2017-07-30 15:15 | disposition home or self-care (01) | DRG 682 ==
LOC: ED 17:12 → DU 18:52
PROVIDERS: Emergency Medicine; ADMIT Family Medicine Sports Medicine
PROC: 05HN33Z Insertion of Infusion Device into Left Internal Jugular Vein, Percutaneous Approach (ICD-10-PCS; principal; 2017-07-29)
PROC: B544ZZA Ultrasonography of Left Jugular Veins, Guidance (ICD-10-PCS; 2017-07-29)
DX: I12.0 Hypertensive chronic kidney disease with stage 5 chronic kidney disease or end stage renal disease (principal); N18.6 End stage renal disease; N17.0 Acute kidney failure with tubular necrosis; Q87.81 Alport syndrome; E87.2 Acidosis; E87.5 Hyperkalemia; E83.51 Hypocalcemia; D63.1 Anemia in chronic kidney disease; Q12 Congenital lens malformations; F14.10 Cocaine abuse, uncomplicated; F15.10 Other stimulant abuse, uncomplicated; E83.39 Other disorders of phosphorus metabolism; E83.41 Hypermagnesemia; G40.909 Epilepsy, unspecified, not intractable, without status epilepticus; E78.1 Pure hyperglyceridemia; F17.210 Nicotine dependence, cigarettes, uncomplicated; I25.2 Old myocardial infarction; Z68.23 Body mass index [BMI] 23.0-23.9, adult; F32.9 Major depressive disorder, single episode, unspecified
CPT/HCPCS: 36600; 83880; 84439; J1170; J1642; J1644; J1940; J2001; J2150; J2270; J7030; Q0092

== ENCOUNTER 2017-11-02 13:52 | Emergency (ER) | payer OTHER ==
[~2017-11-02] VITALS: Ht 165.1 cm; Wt 63.5 kg
[2017-11-02 13:57] VITALS: Ht 165.1 cm; Wt 63.5 kg
[2017-11-02] MEDS ORDERED: MINOXIDIL2.5 MG (14:28)
[2017-11-02] MEDS ORDERED: EPZICOM1 TAB PO (14:28)
[2017-11-02] MEDS ORDERED: LEXAPRO5 M1 PO (14:28)
[2017-11-02 14:56] LABS: BASOPHIL % 0.2 % (0-2); PLATELET COUNT 246 x10^3mcL (130-400)
[2017-11-02 14:57] LABS: RED CELL DISTRIBUTION WIDTH 15.8 % (11.5-14.5)
[2017-11-02 15:00] LABS: BILIRUBIN TOTAL 0.36 mg/dL (0.20-1.00); CALCIUM 8.1 mg/dL (8.5-10.1); POTASSIUM SERUM 4.5 mmol/L (3.5-5.1)
[2017-11-02 15:01] LABS: ALBUMIN 3.1 g/dL (3.4-5.0)
[2017-11-02 15:02] LABS: CREATININE SERUM 8.8 mg/dL (0.7-1.3)
[2017-11-02 15:20] VITALS: BP 163/93
== END 2017-11-02 15:20 | disposition home or self-care (01) ==
LOC: ED 13:52
PROVIDERS: Emergency Medicine
DX: J18.9 Pneumonia, unspecified organism (principal); D64.9 Anemia, unspecified; I12.0 Hypertensive chronic kidney disease with stage 5 chronic kidney disease or end stage renal disease; N18.6 End stage renal disease
CPT/HCPCS: 36415; 83880; Q0092

== ENCOUNTER 2017-11-10 14:02 | Emergency (ER) | payer OTHER ==
[~2017-11-10] VITALS: Ht 170.2 cm; Wt 66.5 kg
[~2017-11-10 14:02] MED LIST changes: +EPZICOM1 TAB PO; +LEXAPRO5 M1 PO; +MINOXIDIL2.5 MG
[2017-11-10 14:08] VITALS: Ht 170.2 cm; Wt 66.5 kg
[2017-11-10 14:59] VITALS: BP 168/88
== END 2017-11-10 14:59 | disposition other institution (70) ==
LOC: ED 14:02
DX: Z02.89 Encounter for other administrative examinations (principal); E78.00 Pure hypercholesterolemia, unspecified; F17.210 Nicotine dependence, cigarettes, uncomplicated; I12.0 Hypertensive chronic kidney disease with stage 5 chronic kidney disease or end stage renal disease; N18.6 End stage renal disease; Z99.2 Dependence on renal dialysis; Z86.73 Personal history of transient ischemic attack (TIA), and cerebral infarction without residual deficits; Z71.6 Tobacco abuse counseling
CPT/HCPCS: 99406

== ENCOUNTER 2018-01-18 13:59 | Emergency (ER) | payer OTHER ==
[~2018-01-18] VITALS: Ht 167.6 cm; Wt 66.4 kg
[2018-01-18 14:07] VITALS: Ht 167.6 cm; Wt 66.4 kg
[2018-01-18 14:32] LABS: BASOPHIL % 0.3 % (0-2); PLATELET COUNT 238 x10^3mcL (130-400)
[2018-01-18 14:40] LABS: ALBUMIN 4.2 g/dL (3.4-5.0); ALKALINE PHOSPHATASE 77 U/L (46-116); ALT/SGPT 32 U/L (16-63); AST/SGOT 37 U/L (15-37); BILIRUBIN TOTAL 0.4 mg/dL (0.20-1.00); CALCIUM 7.9 mg/dL (8.5-10.1); CARBON DIOXIDE 21.7 mmol/L (21-32); CHLORIDE SERUM 97 mmol/L (98-107); GFR1 4 mL/min; GLUCOSE SERUM 89 mg/dL (74-106); SODIUM SERUM 135 mmol/L (136-145); TOTAL PROTEIN, SERUM 7.4 g/dL (6.4-8.2)
[2018-01-18 14:44] LABS: POTASSIUM SERUM 5.7 mmol/L (3.5-5.1)
[2018-01-18 14:45] LABS: CREATININE SERUM 16.2 mg/dL (0.7-1.3)
[2018-01-18 14:55] VITALS: BP 153/112
[2018-01-18 14:57] LABS: RED CELL DISTRIBUTION WIDTH 17.3 % (11.5-14.5)
== END 2018-01-18 14:55 | disposition left against medical advice (07) ==
LOC: ED 13:59
PROVIDERS: Emergency Medicine
DX: F15.129 Other stimulant abuse with intoxication, unspecified (principal); E87.5 Hyperkalemia; I12.0 Hypertensive chronic kidney disease with stage 5 chronic kidney disease or end stage renal disease; N18.6 End stage renal disease; E78.00 Pure hypercholesterolemia, unspecified; F17.210 Nicotine dependence, cigarettes, uncomplicated; F14.10 Cocaine abuse, uncomplicated; Q87.81 Alport syndrome; Z86.79 Personal history of other diseases of the circulatory system; Z99.2 Dependence on renal dialysis; Z95.828 Presence of other vascular implants and grafts; Z71.6 Tobacco abuse counseling
CPT/HCPCS: 36415; 83880; 99406; G0480

== ENCOUNTER 2018-10-19 13:47 | Inpatient (IN) | payer OTHER ==
[~2018-10-19] VITALS: Ht 172.7 cm; Wt 62.1 kg
[2018-10-19 14:10] VITALS: Ht 172.7 cm; Wt 62.1 kg
[2018-10-19 14:49] LABS: BASOPHIL % 0.2 % (0-2); PLATELET COUNT 189 x10^3mcL (130-400); RED CELL DISTRIBUTION WIDTH 13.1 % (11.5-14.5)
[2018-10-19 15:04] LABS: ALBUMIN 4.2 g/dL (3.4-5.0); BILIRUBIN TOTAL 0.4 mg/dL (0.20-1.00); CALCIUM 8.8 mg/dL (8.5-10.1); CARBON DIOXIDE 19.8 mmol/L (21-32); POTASSIUM SERUM 4.7 mmol/L (3.5-5.1); TOTAL PROTEIN, SERUM 7.5 g/dL (6.4-8.2)
[2018-10-19 15:14] LABS: CREATININE SERUM 15.9 mg/dL (0.7-1.3)
[2018-10-19 18:36] LABS: MAGNESIUM 2.5 mg/dL (1.8-2.4); PHOSPHOROUS 7.4 mg/dL (2.5-4.9)
[2018-10-19 18:37] LABS: CHOLESTEROL/HDL RATIO 3.2
[2018-10-19 21:06] VITALS: BP 150/102
[2018-10-20 01:34] VITALS: BP 149/96
[2018-10-20 06:47] VITALS: BP 150/98
[2018-10-20 07:35] LABS: CALCIUM 8.5 mg/dL (8.5-10.1); CARBON DIOXIDE 20.7 mmol/L (21-32); MAGNESIUM 2.8 mg/dL (1.8-2.4); PHOSPHOROUS 8.5 mg/dL (2.5-4.9); POTASSIUM SERUM 5.1 mmol/L (3.5-5.1)
[2018-10-20 07:51] LABS: CREATININE SERUM 17.9 mg/dL (0.7-1.3)
[2018-10-20 09:15] VITALS: BP 138/94
[2018-10-20 09:22] LABS: BASOPHIL % 0.4 % (0-2); PLATELET COUNT 164 x10^3mcL (130-400)
[2018-10-20 20:51] VITALS: BP 158/100
[2018-10-21 06:06] VITALS: BP 135/87
[2018-10-21 06:18] LABS: BASOPHIL % 0.5 % (0-2); PLATELET COUNT 183 x10^3mcL (130-400); RED CELL DISTRIBUTION WIDTH 13.1 % (11.5-14.5)
[2018-10-21 06:33] LABS: CALCIUM 7.8 mg/dL (8.5-10.1); CARBON DIOXIDE 29.4 mmol/L (21-32); POTASSIUM SERUM 4.1 mmol/L (3.5-5.1)
[2018-10-21 06:45] LABS: CREATININE SERUM 13.1 mg/dL (0.7-1.3)
[2018-10-21 09:54] VITALS: BP 142/90
[2018-10-21 13:34] VITALS: BP 148/99
[2018-10-21 15:13] VITALS: BP 148/99
== END 2018-10-21 15:29 | disposition home or self-care (01) | DRG 896 ==
LOC: ED 13:47 → DU 17:56 → MU 17:56 → DU 19:58
PROVIDERS: Emergency Medicine; Internal Medicine Nephrology; ADMIT Family Medicine
DX: F15.10 Other stimulant abuse, uncomplicated (principal); N18.6 End stage renal disease; G92 Toxic encephalopathy; N17.0 Acute kidney failure with tubular necrosis; Q87.81 Alport syndrome; I12.0 Hypertensive chronic kidney disease with stage 5 chronic kidney disease or end stage renal disease; I67.4 Hypertensive encephalopathy; Z68.1 Body mass index [BMI] 19.9 or less, adult; F14.90 Cocaine use, unspecified, uncomplicated; E87.5 Hyperkalemia; E83.39 Other disorders of phosphorus metabolism; Z99.2 Dependence on renal dialysis; Z86.74 Personal history of sudden cardiac arrest; Z91.15 Patient's noncompliance with renal dialysis; F17.210 Nicotine dependence, cigarettes, uncomplicated
CPT/HCPCS: J1200; J2060; J2405; J3490; J7030; Q0092; Q0163

== ENCOUNTER 2018-12-02 18:28 | Emergency (ER) | payer OTHER ==
[~2018-12-02] VITALS: Ht 172.7 cm; Wt 29.0 kg
[2018-12-02 18:38] VITALS: Ht 172.7 cm; Wt 29.0 kg
[2018-12-02 22:48] VITALS: BP 144/69
== END 2018-12-02 22:48 | disposition home or self-care (01) ==
LOC: ED 18:28
DX: J18.1 Lobar pneumonia, unspecified organism (principal); I12.0 Hypertensive chronic kidney disease with stage 5 chronic kidney disease or end stage renal disease; N18.6 End stage renal disease; Z99.2 Dependence on renal dialysis
CPT/HCPCS: 87804; Q0092

== ENCOUNTER 2019-01-24 19:52 | Emergency (ER) | payer OTHER ==
[~2019-01-24] VITALS: Ht 172.7 cm; Wt 63.5 kg
[2019-01-24 20:44] LABS: PLATELET COUNT 275 x10^3mcL (130-400)
[2019-01-24 20:50] LABS: BASOPHIL % 0 % (0-2); RED CELL DISTRIBUTION WIDTH 14.8 % (11.5-14.5)
[2019-01-24 20:51] LABS: CALCIUM 8.9 mg/dL (8.5-10.1); CARBON DIOXIDE 28.1 mmol/L (21-32); POTASSIUM SERUM 3.7 mmol/L (3.5-5.1)
[2019-01-24 20:53] LABS: CREATININE SERUM 7.1 mg/dL (0.7-1.3)
[2019-01-25 00:30] VITALS: BP 144/97
== END 2019-01-25 00:30 | disposition home or self-care (01) ==
LOC: ED 19:52
PROVIDERS: Emergency Medicine
DX: F15.20 Other stimulant dependence, uncomplicated (principal); I10 Essential (primary) hypertension; E78.00 Pure hypercholesterolemia, unspecified; F32.9 Major depressive disorder, single episode, unspecified; F17.210 Nicotine dependence, cigarettes, uncomplicated
CPT/HCPCS: 36415

== ENCOUNTER 2019-02-10 17:36 | Emergency (ER) | payer OTHER ==
[~2019-02-10] VITALS: Ht 172.7 cm; Wt 63.5 kg
[2019-02-10 17:53] VITALS: Ht 172.7 cm; Wt 63.5 kg
[2019-02-10 18:19] VITALS: BP 168/110; BP 205/132
[2019-02-10 18:23] VITALS: BP 166/105
[2019-02-10] MEDS ORDERED: CARVEDILOL6.25 M1 PO (19:03)
[2019-02-10] MEDS ORDERED: OXCARBAZEPINE300 M1 PO (19:03)
[2019-02-10] MEDS ORDERED: ESCITALOPRAM OX20 MG PO (19:04)
[2019-02-10] MEDS ORDERED: GOOD SENSE ASPI81 M3 PO (19:04)
[2019-02-10] MEDS ORDERED: ABILIFY5 M1 PO (19:04)
[2019-02-10 20:04] LABS: BASOPHIL % 0.2 % (0-2); PLATELET COUNT 276 x10^3mcL (130-400)
[2019-02-10 20:07] LABS: RED CELL DISTRIBUTION WIDTH 16.5 % (11.5-14.5)
[2019-02-10 20:25] VITALS: BP 187/99
[2019-02-10 20:37] LABS: ALBUMIN 3.6 g/dL (3.4-5.0); BILIRUBIN TOTAL 0.4 mg/dL (0.20-1.00); CALCIUM 8.8 mg/dL (8.5-10.1); POTASSIUM SERUM 4.9 mmol/L (3.5-5.1); TOTAL PROTEIN, SERUM 7.9 g/dL (6.4-8.2)
[2019-02-10 20:44] LABS: CREATININE SERUM 13.4 mg/dL (0.7-1.3)
[2019-02-10 21:09] VITALS: BP 187/99
== END 2019-02-10 21:09 | disposition short-term general hospital (02) ==
LOC: ED 17:36
PROVIDERS: Emergency Medicine
DX: S06.5X9A Traumatic subdural hemorrhage with loss of consciousness of unspecified duration, initial encounter (principal); R56.9 Unspecified convulsions; N18.6 End stage renal disease; I12.0 Hypertensive chronic kidney disease with stage 5 chronic kidney disease or end stage renal disease; E78.00 Pure hypercholesterolemia, unspecified; F14.90 Cocaine use, unspecified, uncomplicated; Z98.890 Other specified postprocedural states; W07.XXXA Fall from chair, initial encounter; Y93.89 Activity, other specified; Y92.89 Other specified places as the place of occurrence of the external cause; Y99.8 Other external cause status
CPT/HCPCS: 36600; J0696; J2250; Q0092

== ENCOUNTER 2020-02-28 15:33 | Emergency (ER) | payer OTHER ==
[~2020-02-28] VITALS: Ht 172.7 cm; Wt 61.2 kg
[~2020-02-28 15:33] MED LIST changes: +CARVEDILOL6.25 M1 PO; +ESCITALOPRAM OX20 MG PO; +GOOD SENSE ASPI81 M3 PO; +OXCARBAZEPINE300 M1 PO
[2020-02-28 15:44] VITALS: Ht 172.7 cm; Wt 61.2 kg
[2020-02-28 16:08] LABS: BASOPHIL % 0.3 % (0-2); PLATELET COUNT 192 x10^3mcL (130-400)
[2020-02-28 16:12] LABS: RED CELL DISTRIBUTION WIDTH 15.1 % (11.5-14.5)
[2020-02-28 16:22] LABS: ALBUMIN 3.7 g/dL (3.4-5.0); BILIRUBIN TOTAL 0.3 mg/dL (0.20-1.00); CALCIUM 8.6 mg/dL (8.5-10.1); CARBON DIOXIDE 24.3 mmol/L (21-32); TOTAL PROTEIN, SERUM 6.8 g/dL (6.4-8.2)
[2020-02-28 16:25] LABS: CREATININE SERUM 9.4 mg/dL (0.7-1.3)
[2020-02-28 17:55] VITALS: BP 147/98
== END 2020-02-28 17:55 | disposition home or self-care (01) ==
LOC: ED 15:33
PROVIDERS: Emergency Medicine
DX: R10.817 Generalized abdominal tenderness (principal); N18.6 End stage renal disease; E78.5 Hyperlipidemia, unspecified; R11.0 Nausea; F15.10 Other stimulant abuse, uncomplicated; Z99.2 Dependence on renal dialysis